=== PATIENT | female | born 1940 | race Caucasian/White ===

== ENCOUNTER → 2018-03-13 23:55 | Outpatient (CLI) | payer MEDICARE, BC ==
[2009-11-04 12:21] VITALS: BMI 26.3
== END | disposition home or self-care (01) ==
LOC: D.MAMMO 15:00
DX: R92.8 Other abnormal and inconclusive findings on diagnostic imaging of breast (principal)

== ENCOUNTER 2018-04-03 08:00 | Outpatient (CLI) | payer MEDICARE, BC ==
[2009-11-04 12:21] VITALS: BMI 26.3
== END 2018-04-03 09:00 | disposition home or self-care (01) ==
LOC: D.MAMMO 08:00 → D.US 09:30 → D.MAMMO 11:00
DX: R92.8 Other abnormal and inconclusive findings on diagnostic imaging of breast (principal)

== ENCOUNTER → 2018-06-13 09:30 | Outpatient (CLI) | payer MEDICARE ==
[2009-11-04 12:21] VITALS: BMI 26.3
== END | disposition home or self-care (01) ==
LOC: D.NM 09:30
DX: R19.09 Other intra-abdominal and pelvic swelling, mass and lump (principal)

== ENCOUNTER → 2018-06-21 10:54 | Outpatient (CLI) | payer MEDICARE ==
[2009-11-04 12:21] VITALS: BMI 26.3
== END | disposition home or self-care (01) ==
LOC: D.CT 10:54
DX: R07.81 Pleurodynia (principal)

== ENCOUNTER → 2019-03-07 17:17 | Outpatient (CLI) | payer MEDICARE | END | disposition home or self-care (01) | LOC: D.MAMMO 17:17 | DX: R92.8 Other abnormal and inconclusive findings on diagnostic imaging of breast (principal) ==

== ENCOUNTER → 2019-03-20 13:22 | Outpatient (CLI) | payer MEDICARE ==
[2009-11-04 12:21] VITALS: BMI 26.3
== END | disposition home or self-care (01) ==
LOC: D.US 13:22
PROVIDERS: ATTEND Surgery
DX: N63.13 Unspecified lump in the right breast, lower outer quadrant (principal)

== ENCOUNTER → 2019-06-06 11:23 | Outpatient (CLI) | payer MEDICARE ==
[2009-11-04 12:21] VITALS: BMI 26.3
== END | disposition home or self-care (01) ==
LOC: D.RAD 11:23
PROVIDERS: ATTEND Family Medicine
DX: M54.2 Cervicalgia (principal)

== ENCOUNTER 2019-09-04 00:40 | Emergency (ER) | payer MEDICARE ==
[~2019-09-04] VITALS: Ht 157.5 cm; Wt 65.0 kg
[2019-09-04 00:48] VITALS: Ht 157.5 cm; Wt 65.0 kg
[2019-09-04] MEDS ORDERED: TOPROL XL25 MG PO (00:49)
[2019-09-04] MEDS ORDERED: BAYER CHEWABLE81 MG PO (00:49)
[2019-09-04] MEDS ORDERED: LIPITOR10 MG PO (00:50)
[2019-09-04] MEDS ORDERED: FLECAINIDE ACE100 MG PO (00:50)
[2019-09-04 01:19] LABS: BASOPHILS 0.1 % (0-2); EOSINOPHILS 1.9 % (0-7); HEMATOCRIT 39.7 % (36.0-48.0); HEMOGLOBIN 13.3 g/dL (12-16); IMMATURE GRANULOCYTES 0.3 % (0-5); LYMPHOCYTES 30.5 % (15-50); MCH 30.5 pg (26.0-34.0); MCHC 33.5 g/dL (31.0-37.0); MCV 91.1 fL (80.0-100.0); MEAN PLATELET VOLUME 9.7 fL (7.4-10.4); MONOCYTES 10.4 % (2-11); NEUTROPHILS 56.8 % (40-80); PLATELET COUNT 198 10x3/uL (130-400); RBC 4.36 10x6/uL (4.00-5.40); RDW 12.7 % (11.5-14.5); WBC 6.7 10x3/uL (4.8-10.8)
[2019-09-04 01:25] LABS: CALC OSMOLALITY 279 mosm/kg (275-300); CALCIUM 8.9 mg/dL (8.5-10.1); CARBON DIOXIDE 28.1 mmol/L (21.0-32.0); CHLORIDE - SERUM 104 mmol/L (98-107); CREATININE - SERUM 0.7 mg/dL (0.6-1.3); GLUCOSE 102 mg/dL (74-106); POTASSIUM - SERUM 3.8 mmol/L (3.5-5.1); SODIUM 140 mmol/L (136-145); UREA NITROGEN 15 mg/dL (7-18); eGFR NON AFRICAN AMERICAN 86 mL/min (90-120)
[2019-09-04 01:26] LABS: APTT 36.9 SECONDS (22.8-39.4); INR 1.05 (0.85-1.17); PROTIME 13.2 SECONDS (11.6-15.0)
[2019-09-04 01:44] LABS: ALBUMIN 3.5 g/dL (3.4-5.0); ALKALINE PHOSPHATASE 92 U/L (46-116); ALT (SGPT) 17 U/L (10-68); BILIRUBIN - TOTAL 0.34 mg/dL (0.2-1.3); CKMB 1.2 U/L (0.0-3.6); CREATINE KINASE 92 UL (21-215); PROTEIN - SERUM 7.4 g/dL (6.4-8.2); TROPONIN-I < 0.017 ng/mL (0.000-0.060)
[2019-09-04 02:42] VITALS: BP 125/72
== END 2019-09-04 02:42 | disposition home or self-care (01) ==
LOC: D.ER 00:40
PROVIDERS: Emergency Medicine
DX: I48.91 Unspecified atrial fibrillation (principal); Z96.643 Presence of artificial hip joint, bilateral; Z90.10 Acquired absence of unspecified breast and nipple